=== PATIENT | female | born 1990 | race American Indian/Alaskan Native ===

== ENCOUNTER 2016-10-05 13:45 | Emergency (ER) | payer SELFPAY ==
[2016-10-05 19:38] VITALS: BP 156/98
--- NOTE | 2016-10-06 07:24 | ED Elopement Review ---
ED Pt Elopement review - Results review Lab results: Laboratory Tests 10/05/16 14:53 Urine HCG, Qual Negative - Call Back decision Pt Call Back Decision: No action required
== END 2016-10-05 20:30 | disposition left against medical advice (07) ==
LOC: ED 13:45
DX: M79.605 Pain in left leg (principal); Z53.21 Procedure and treatment not carried out due to patient leaving prior to being seen by health care provider
CPT/HCPCS: 81025

== ENCOUNTER 2016-10-06 11:10 | Emergency (ER) | payer SELFPAY ==
[2016-10-06 12:36] VITALS: BP 136/78
[2016-10-06] MEDS ORDERED: TORADOL IM ONE (13:32)
--- NOTE | 2016-10-06 14:16 | Emergency Department Report ---
ED Extremity Problem HPI - General Chief complaint: Extremity Injury, Lower Stated complaint: PAIN IN KNEE/SWELLING Time Seen by Provider: 10/06/16 13:22 Source: patient, RN notes reviewed, old records reviewed Mode of arrival: Ambulatory Limitations: No Limitations - History of Present Illness Initial comments: PT c/o L knee pain that radiates down her leg x a couple of weeks. PT states she came to the ED yesterday and had an ultra sound but then she left. PT states she has not recently injured her leg/ knee but she has a hx of "sprained leg" PT states she injured her leg at the end of last year. PT states she walks frequently. No relief of pain with Goody's powder or Tylenol. PT states her leg was swollen yesterday but the swelling decreased after she elevated her leg yesterday MD Complaint: extremity pain, joint paint Onset/Timin -: Gradual, week(s) Location: left, lower extremity, knee History of Same: Yes Severity scale (0 -10): 10 Quality: aching, sharp, constant Consistency: constant Improves with: elevation, rest Worsens with: weight bearing, walking, palpation Associated Symptoms: denies other symptoms. denies: fever, rash - Related Data Previous Rx's Medication Instructions Recorded Last Taken Type Ibuprofen [Motrin] 600 mg PO Q8H PRN #15 tablet 10/06/16 Unknown Rx traMADol [Ultram] 50 mg PO Q6HR PRN #12 tablet 10/06/16 Unknown Rx Allergies Allergy/AdvReac Type Severity Reaction Status Date / Time acetaminophen [From Percocet] Allergy Itching Verified 10/06/16 12:36 oxycodone HCl [From Percocet] Allergy Itching Verified 10/06/16 12:36 ED Review of Systems ROS: Stated complaint: PAIN IN KNEE/SWELLING Other details as noted in HPI Comment: All other systems reviewed and negative Constitutional: denies: fever Cardiovascular: denies: chest pain Gastrointestinal: denies: nausea, vomiting Musculoskeletal: as per HPI, joint swelling. denies: back pain Skin: denies: rash Neurological: denies: headache ED Past Medical Hx - Past Medical History Additional medical history: Left leg pain, Hx. of left index finger injury - Surgical History Past Surgical History?: No - Social History Smoking Status: Current Every Day Smoker Substance Use Type: Alcohol - Medications Home Medications: Home Medications Medication Instructions Recorded Confirmed Last Taken Type Ibuprofen [Motrin] 600 mg PO Q8H PRN #15 tablet 10/06/16 Unknown Rx traMADol [Ultram] 50 mg PO Q6HR PRN #12 tablet 10/06/16 Unknown Rx ED Physical Exam - General Limitations: No Limitations General appearance: alert, in no apparent distress - Head Head exam: Present: atraumatic, normocephalic, normal inspection - Eye Eye exam: Present: normal appearance, EOMI. Absent: conjunctival injection - ENT ENT exam: Present: normal exam, normal external ear exam - Neck Neck exam: Present: normal inspection, full ROM - Respiratory Respiratory exam: Present: normal lung sounds bilaterally. Absent: respiratory distress - Cardiovascular Cardiovascular Exam: Present: regular rate, normal rhythm - GI/Abdominal GI/Abdominal exam: Present: soft. Absent: tenderness - Extremities Exam Extremities exam: Present: normal inspection, full ROM, tenderness, calf tenderness. Absent: pedal edema, joint swelling - Expanded Lower Extremity Exam Left Hip exam: Present: full ROM. Absent: tenderness Upper Leg exam: Present: normal inspection. Absent: tenderness, swelling Knee exam: Present: normal inspection, full ROM, tenderness (to medial knee ). Absent: swelling, ecchymosis, deformity, crepidus Lower Leg exam: Present: tenderness, Isiah's sign. Absent: swelling Ankle exam: Present: normal inspection, tenderness. Absent: swelling, ecchymosis, deformity, dislocation Foot/Toe exam: Present: normal inspection, full ROM. Absent: tenderness Neuro vascular tendon exam: Absent: pulse deficit - Back Exam Back exam: Present: normal inspection, full ROM. Absent: tenderness, CVA tenderness (R), CVA tenderness (L) - Neurological Exam Neurological exam: Present: alert, oriented X3 - Psychiatric Psychiatric exam: Present: normal affect, normal mood - Skin Skin exam: Present: warm, dry, intact ED Course Vital Signs 10/06/16 12:31 Temperature 98.0 F Pulse Rate 70 Respiratory 18 Rate Blood Pressure 136/78 O2 Sat by Pulse 100 Oximetry - Reevaluation(s) Reevaluation #1: 10/06/16 14:19 PT aware no DVT seen on US yesterday. Reevaluation #2: 10/06/16 14:35 PT states pain improved sp Toradol. PT aware of my interpretation of the XR Reevaluation #3: 10/06/16 PT placed in knee immobilizer by RN, pt NVI - Pulse Oximetry Interpretation Digit-Finger Initial Pulse Oximetry Readin Actions Taken: none ED Medical Decision Making - Radiology Data Radiology results: image reviewed interpreted by me: Dariel knee- NAP - Differential Diagnosis dvt, strain, oa, effusion Critical Care Time: No Critical care attestation.: If time is entered above; I have spent that time in minutes in the direct care of this critically ill patient, excluding procedure time. ED Disposition Clinical Impression: Acute pain of left knee Disposition: DISCHARGED TO HOME OR SELFCARE Is pt being admited?: No Does the pt Need Aspirin: No Condition: Stable Instructions: Knee Pain (ED), Knee Immobilizer (ED) Additional Instructions: No driving or ETOH after Ultram No Goody's powder with Motrin Prescriptions: Ibuprofen [Motrin] 600 mg PO Q8H PRN #15 tablet PRN Reason: Pain traMADol [Ultram] 50 mg PO Q6HR PRN #12 tablet PRN Reason: Pain Referrals: PRIMARY CARE, [Primary Care Provider] - 3-5 Days WILLEM LIMA MD [Staff Physician] - 3-5 Days TIERA RODRÍGUEZ MD [Staff Physician] - 3-5 Days Time of Disposition: 14:38
--- NOTE | 2016-10-07 10:16 | XRay Report ---
LEFT KNEE, 2 views: History: Left knee pain. The bony architecture is intact without evidence of fracture or dislocation. No significant soft tissue abnormality is seen. IMPRESSION: Normal left knee. No significant change since 09/01/14.
== END 2016-10-06 14:55 | disposition home or self-care (01) ==
LOC: ED 11:10
DX: M25.562 Pain in left knee (principal); F17.200 Nicotine dependence, unspecified, uncomplicated
CPT/HCPCS: 29505; 73560; 96372; 99283; J1885

== ENCOUNTER 2017-05-10 17:09 | Emergency (ER) | payer SELFPAY ==
--- NOTE | 2017-05-10 21:32 | Emergency Department Report ---
HPI - General Chief Complaint: Sore Throat Time Seen by Provider: 05/10/17 19:43 - HPI HPI: Patient here reports that she has had sore throat 1 week, painful to swallow. She says she had fever and chills. Denies any nausea or vomiting. She said it is painful to talk. Pain is worse with swallowing better when she is not talking or eating. She said she has no cough in, nasal congestion or runny nose. Denies any shortness of breath or chest pain. Denies any swelling of tongue or drooling. Pain is 10 out of 10 and feels sore. Denies any nausea or vomiting. Denies any abdominal pain. ED Past Medical Hx - Past Medical History Previous Medical History?: Yes Additional medical history: Left leg pain, Hx. of left index finger injury - Surgical History Past Surgical History?: No - Family History Family history: hypertension - Social History Smoking Status: Current Every Day Smoker Substance Use Type: Alcohol - Medications Home Medications: Home Medications Medication Instructions Recorded Confirmed Last Taken Type Ibuprofen [Motrin] 600 mg PO Q8H PRN #15 tablet 10/06/16 Unknown Rx traMADol [Ultram] 50 mg PO Q6HR PRN #12 tablet 10/06/16 Unknown Rx Ibuprofen [Motrin] 600 mg PO Q8H PRN 5 Days #15 tablet 05/10/17 Unknown Rx Penicillin V Potassium 500 mg PO Q8H 10 Days #30 tablet 05/10/17 Unknown Rx ED Review of Systems ROS: Stated complaint: MOUTH PAIN Other details as noted in HPI Comment: All other systems reviewed and negative Constitutional: chills, fever ENT: throat pain. denies: ear pain, dental pain, hearing loss, epistaxis, congestion Respiratory: no symptoms reported Cardiovascular: denies: chest pain, palpitations, dyspnea on exertion, edema, syncope Gastrointestinal: denies: abdominal pain, nausea, vomiting, diarrhea Musculoskeletal: denies: back pain, arthralgia, myalgia Skin: denies: rash Neurological: denies: headache Physical Exam - Physical Exam Vital Signs: Vital Signs 05/10/17 05/10/17 17:11 19:48 Temperature 99.3 F 98.3 F Pulse Rate 90 91 H Respiratory 20 18 Rate Blood Pressure 188/96 Blood Pressure 153/94 [Left] O2 Sat by Pulse 98 99 Oximetry General: This is 27-year-old female well-nourished well-developed in no acute distress. Physical Exam: Head: Normocephalic atraumatic Ears:BIateral TM normal and pearly olea .Gopi EAC with normal exam. No mastoid bone tenderness. Mouth: Moist, positive pharyngeal erythema or exudate . No tonsillar erythema or exudate. UVULA midline and oral airways patent. No peritonsillar abscess Neck: Nontender to palpate, supple, normal range of motion. positive anterior adenopathy. No c-spine tenderness. Nose: Bilateral nasal normal without any drainage. Maxillary and frontal sinuses non-tender to palpate. Eyes: Sclerae and conjunctiva without injection. Bilateral pupils equal and reactive to light. Bilateral lids are normal. Normal accommodation.BEOMI Lungs: Clear to auscultate bilaterally, no rhonchi wheezes or rales. Normal work of breathing and no chest wall tenderness CV: S1, S2. Regular rate and rhythm negative murmur. Capillary refill is less than 3 seconds Skin: Clean dry and intact, no rashes or lesions Psych: Normal mood and behavior ED Course Vital Signs 05/10/17 05/10/17 17:11 19:48 Temperature 99.3 F 98.3 F Pulse Rate 90 91 H Respiratory 20 18 Rate Blood Pressure 188/96 Blood Pressure 153/94 [Left] O2 Sat by Pulse 98 99 Oximetry - Reevaluation(s) Reevaluation #1: 05/10/17 22:34 Patient given Toradol 60 mg IM and Decadron 10 mg IM. She voiced relief of pain. ED Medical Decision Making - Medical Decision Making ED course: Patient presented to emergency room complaining of sore throat and painful to swallow with fever and chills over a week. She denies any exposure to strep. Patient was not having any respiratory symptoms. Physical findings for erythema, exudative pharynx. Patient also had fever and chills and some Cervical adenopathy. Based on [facility] criteria patient will be treated for strep throat. No need for strep tests. I discussed patient diagnosis and treatment plan and she voiced understanding. Patient given Decadron 10 mg IV for swelling to throat, Toradol 60 mg IM for inflammation and pain. Patient voiced that her pain is better. Patient discharged home with prescription for penicillin VK and Motrin and to follow-up with her primary care physician in 3 days. Discussed with her she does not have a primary care physician she will need to follow[facility] at the [facility]. Critical care attestation.: If time is entered above; I have spent that time in minutes in the direct care of this critically ill patient, excluding procedure time. ED Disposition Clinical Impression: Exudative pharyngitis, Fever and chills, Anterior cervical adenopathy Disposition: - TO HOME OR SELFCARE Is pt being admited?: No Does the pt Need Aspirin: No Condition: Stable Instructions: Strep Throat (ED), Fever in Adults (ED) Additional Instructions: Please increase her fluid intake Gargle with warm salt water 3-4 times a day to help sore throat can take Motrin as scheduled for sore throat and inflammation. take antibiotic as prescribed F/U with primary care physician as instructed and if you do not have a primary care physician he can follow up at [facility]. Prescriptions: Ibuprofen [Motrin] 600 mg PO Q8H PRN 5 Days #15 tablet PRN Reason: Pain Penicillin V Potassium 500 mg PO Q8H 10 Days #30 tablet Referrals: PRIMARY CAREMD [Primary Care Provider] - 05/13/17 [facility] [Outside] - 05/13/17 Forms: Accompanied Note, Work/School Release Form(ED)
[2017-05-10] MEDS ORDERED: DECADRON INTRAOCULA ONE (21:33)
[2017-05-10] MEDS ORDERED: TORADOL IM ONE (21:33)
[2017-05-10 22:52] VITALS: BP 151/82
== END 2017-05-10 22:51 | disposition home or self-care (01) ==
LOC: ED 17:09
DX: J02.9 Acute pharyngitis, unspecified (principal); R59.0 Localized enlarged lymph nodes; F17.200 Nicotine dependence, unspecified, uncomplicated
CPT/HCPCS: 96372; 99282; J1100; J1885

== ENCOUNTER 2018-12-26 14:24 | Emergency (ER) | payer SELFPAY ==
--- NOTE | 2018-12-26 14:53 | Event Note ---
ED Screening Note ED Screening Note: pt presents with vaginal discharge +dysuria denies any hx of STDs in the past This initial assessment/diagnostic orders/clinical plan/treatment(s) is/are subject to change based on patients health status, clinical progression and re- assessment by fellow clinical providers in the ED. Further treatment and workup at subsequent clinical providers discretion. Patient/guardian urged not to elope from the ED as their condition may be serious if not clinically assessed and managed. Initial orders include: UA, urine preg
--- NOTE | 2018-12-26 21:23 | Emergency Department Report ---
ED Female HPI - General Chief complaint: Urogenital-Female Stated complaint: STD CHECK Time Seen by Provider: 12/26/18 14:51 Source: patient Mode of arrival: Ambulatory Limitations: No Limitations - History of Present Illness Initial comments: Pt presents with vaginal discharge +dysuria , concern for STD Exposure as reported by partner, denies any hx of STDs in the past , vaginal discharge is brown and malodorous. MD Complaint: vaginal discharge, dysuria Onset/Timin -: Gradual, days(s) Severity scale (0 -10): 4 Quality: cramping Consistency: constant Improves with: none Worsens with: urination Are you Now?: No Last Menstrual Period: 11/15/18 EDC: 08/22/19 Associated Symptoms: vaginal discharge, dysuria - Related Data Sexually active: Yes Previous Rx's Medication Instructions Recorded Last Taken Type Ibuprofen [Motrin] 600 mg PO Q8H PRN #15 tablet 10/06/16 Unknown Rx traMADol [Ultram] 50 mg PO Q6HR PRN #12 tablet 10/06/16 Unknown Rx Ibuprofen [Motrin] 600 mg PO Q8H PRN 5 Days #15 tablet 05/10/17 Unknown Rx Penicillin V Potassium 500 mg PO Q8H 10 Days #30 tablet 05/10/17 Unknown Rx metroNIDAZOLE [Flagyl] 500 mg PO BID 10 Days #20 tab 12/26/18 Unknown Rx Allergies Allergy/AdvReac Type Severity Reaction Status Date / Time acetaminophen [From Percocet] Allergy Itching Verified 12/26/18 14:25 oxycodone HCl [From Percocet] Allergy Itching Verified 12/26/18 14:25 ED Review of Systems ROS: Stated complaint: STD CHECK Other details as noted in HPI Constitutional: denies: chills, fever Eyes: denies: eye pain, eye discharge, vision change ENT: denies: ear pain, throat pain Respiratory: denies: cough, shortness of breath, wheezing Cardiovascular: denies: chest pain, palpitations Endocrine: no symptoms reported Gastrointestinal: denies: abdominal pain, nausea, diarrhea Genitourinary: urgency, dysuria, frequency, discharge. denies: hematuria Musculoskeletal: denies: back pain, joint swelling, arthralgia Skin: denies: rash, lesions Neurological: denies: headache, weakness, paresthesias Psychiatric: denies: anxiety, depression Hematological/Lymphatic: denies: easy bleeding, easy bruising ED Past Medical Hx - Past Medical History Previous Medical History?: No Additional medical history: Left leg pain, Hx. of left index finger injury - Social History Smoking Status: Current Every Day Smoker Substance Use Type: Alcohol - Medications Home Medications: Home Medications Medication Instructions Recorded Confirmed Last Taken Type Ibuprofen [Motrin] 600 mg PO Q8H PRN #15 tablet 10/06/16 Unknown Rx traMADol [Ultram] 50 mg PO Q6HR PRN #12 tablet 10/06/16 Unknown Rx Ibuprofen [Motrin] 600 mg PO Q8H PRN 5 Days #15 tablet 05/10/17 Unknown Rx Penicillin V Potassium 500 mg PO Q8H 10 Days #30 tablet 05/10/17 Unknown Rx metroNIDAZOLE [Flagyl] 500 mg PO BID 10 Days #20 tab 12/26/18 Unknown Rx ED Physical Exam - General Limitations: No Limitations General appearance: alert, in no apparent distress - Head Head exam: Present: atraumatic, normocephalic - Eye Eye exam: Present: normal appearance, PERRL, EOMI - ENT ENT exam: Present: normal exam, mucous membranes moist - Neck Neck exam: Present: normal inspection, full ROM - Respiratory Respiratory exam: Present: normal lung sounds bilaterally. Absent: respiratory distress, wheezes, stridor, chest wall tenderness - Cardiovascular Cardiovascular Exam: Present: regular rate, normal rhythm, normal heart sounds. Absent: systolic murmur, diastolic murmur, rubs, gallop - GI/Abdominal GI/Abdominal exam: Present: soft, normal bowel sounds. Absent: distended, tenderness, guarding, rebound, rigid, bruit, hernia - Rectal Rectal exam: Present: deferred - External exam: Present: normal external exam Speculum exam: Present: erythema, vaginal discharge (brownish brink malodorous moderate erythema no cmt ). Absent: cervical discharge, vaginal bleeding, foreign body, laceration - Extremities Exam Extremities exam: Present: normal inspection - Back Exam Back exam: Present: normal inspection, full ROM. Absent: tenderness, CVA tenderness (R), CVA tenderness (L), muscle spasm, paraspinal tenderness, rash noted - Neurological Exam Neurological exam: Present: alert, oriented X3, CN II-XII intact, normal gait, reflexes normal. Absent: motor sensory deficit - Psychiatric Psychiatric exam: Present: normal affect, normal mood - Skin Skin exam: Present: warm, dry, intact, normal color. Absent: rash ED Course Vital Signs 12/26/18 14:52 Temperature 98.0 F Pulse Rate 99 H Respiratory 16 Rate Blood Pressure 143/78 O2 Sat by Pulse 99 Oximetry ED Medical Decision Making - Medical Decision Making pt request std exposure tx , vaganal exam completed cultures pending will call pt if abnormal findings , pt tx'd phrophylactically as requested for std exposure. pt dc't to home in stable condition at this time. Critical care attestation.: If time is entered above; I have spent that time in minutes in the direct care of this critically ill patient, excluding procedure time. ED Disposition Clinical Impression: Exposure to STD, Bacterial vaginosis Disposition: DC-01 TO HOME OR SELFCARE Is pt being admited?: No Does the pt Need Aspirin: No Condition: Stable Instructions: Bacterial Vaginosis (ED) Additional Instructions: follow up with health department for HIV and HSV Screening Prescriptions: metroNIDAZOLE [Flagyl] 500 mg PO BID 10 Days #20 tab Referrals: TEN CONTE MD [Primary Care Provider] - 3-5 Days Forms: STI Treatment and Prevention Time of Disposition: 22:20
[2018-12-26] MEDS ORDERED: ZITHROMAX PO ONE (22:01)
[2018-12-26] MEDS ORDERED: ROCEPHIN IM ONE (22:01)
[2018-12-26] MEDS ORDERED: XYLOCAINE 1% MPF 5 mL INFILTRATI ONE (22:01)
[2018-12-26 22:56] VITALS: BP 168/100
== END 2018-12-26 22:27 | disposition home or self-care (01) ==
LOC: ED 14:24
DX: Z20.2 Contact with and (suspected) exposure to infections with a predominantly sexual mode of transmission (principal); N76.0 Acute vaginitis; B96.89 Other specified bacterial agents as the cause of diseases classified elsewhere; F17.200 Nicotine dependence, unspecified, uncomplicated; Z88.5 Allergy status to narcotic agent; Z79.1 Long term (current) use of non-steroidal anti-inflammatories (NSAID); Z79.899 Other long term (current) drug therapy
CPT/HCPCS: 87210; 96372; 99283; J0696

== ENCOUNTER 2019-03-13 09:06 | Emergency (ER) | payer BC ==
[2019-03-13 09:28] VITALS: BP 138/48
[2019-03-13 11:21] LABS: Bilirubin,Urine NEG (Negative); Blood,Urine SM (Negative); Color,Urine Amber (Yellow); Mucus,Urine 3+ /HPF; Urobilinogen,Urine < 2.0 mg/dL (<2.0)
[2019-03-13] MEDS ORDERED: LIDOCAINE-MPF (1%) 10 MG/1 ML VIAL 5 ML INFILTRATI ONE (12:09)
[2019-03-13] MEDS ORDERED: AZITHROMYCIN 250 MG TAB PO ONE (12:10)
--- NOTE | 2019-03-13 12:14 | Emergency Department Report ---
ED Female HPI - General Chief complaint: Urogenital-Female Stated complaint: MESSINA WHEN URINATION/PAIN Time Seen by Provider: 03/13/19 10:13 Source: patient Mode of arrival: Ambulatory Limitations: No Limitations - History of Present Illness Initial comments: Pt. c/o vaginal irritation and dysuria. No fever or flank pain. symptoms are consistant with prior trich infxn. Complaint: vaginal discharge Onset/Timin -: Gradual, days(s) Location: suprapubic Radiation: non-radiating Severity scale (0 -10): 5 Quality: cramping Consistency: intermittent Improves with: none Worsens with: intercourse Are you Now?: No - Related Data Previous Rx's Medication Instructions Recorded Last Taken Type Ibuprofen [Motrin] 600 mg PO Q8H PRN #15 tablet 10/06/16 Unknown Rx traMADol [Ultram] 50 mg PO Q6HR PRN #12 tablet 10/06/16 Unknown Rx Ibuprofen [Motrin] 600 mg PO Q8H PRN 5 Days #15 tablet 05/10/17 Unknown Rx Penicillin V Potassium 500 mg PO Q8H 10 Days #30 tablet 05/10/17 Unknown Rx Fluconazole [Diflucan TAB] 150 mg PO ONCE #1 tablet 03/13/19 Unknown Rx metroNIDAZOLE [Flagyl TAB] 4 tab PO ONCE 1 Days #4 tab 03/13/19 Unknown Rx Allergies Allergy/AdvReac Type Severity Reaction Status Date / Time acetaminophen [From Percocet] Allergy Itching Verified 12/26/18 14:25 oxycodone HCl [From Percocet] Allergy Itching Verified 12/26/18 14:25 ED Review of Systems ROS: Stated complaint: MESSINA WHEN URINATION/PAIN Other details as noted in HPI Comment: All other systems reviewed and negative Respiratory: denies: cough, orthopnea Cardiovascular: denies: chest pain, dyspnea on exertion Gastrointestinal: denies: nausea Genitourinary: urgency, dysuria ED Past Medical Hx - Past Medical History Previous Medical History?: No Additional medical history: Left leg pain, Hx. of left index finger injury - Surgical History Past Surgical History?: No - Social History Smoking Status: Current Every Day Smoker Substance Use Type: Alcohol - Medications Home Medications: Home Medications Medication Instructions Recorded Confirmed Last Taken Type Ibuprofen [Motrin] 600 mg PO Q8H PRN #15 tablet 10/06/16 Unknown Rx traMADol [Ultram] 50 mg PO Q6HR PRN #12 tablet 10/06/16 Unknown Rx Ibuprofen [Motrin] 600 mg PO Q8H PRN 5 Days #15 tablet 05/10/17 Unknown Rx Penicillin V Potassium 500 mg PO Q8H 10 Days #30 tablet 05/10/17 Unknown Rx Fluconazole [Diflucan TAB] 150 mg PO ONCE #1 tablet 03/13/19 Unknown Rx metroNIDAZOLE [Flagyl TAB] 4 tab PO ONCE 1 Days #4 tab 03/13/19 Unknown Rx ED Physical Exam - General Limitations: No Limitations General appearance: alert, in no apparent distress - Head Head exam: Present: atraumatic, normocephalic - Eye Eye exam: Present: normal appearance, PERRL, EOMI Pupils: Present: normal accommodation - ENT ENT exam: Present: normal exam, normal orophraynx - Neck Neck exam: Present: normal inspection - Respiratory Respiratory exam: Present: normal lung sounds bilaterally - Cardiovascular Cardiovascular Exam: Present: regular rate, normal rhythm - GI/Abdominal GI/Abdominal exam: Present: soft - External exam: Present: normal external exam Speculum exam: Present: cervical discharge Bi-manual exam: Present: cervical motion tendernes - Extremities Exam Extremities exam: Present: normal inspection - Back Exam Back exam: Present: normal inspection ED Course Vital Signs 03/13/19 09:26 Temperature 98 F Pulse Rate 88 Respiratory 16 Rate Blood Pressure 138/48 [Left] O2 Sat by Pulse 95 Oximetry Critical care attestation.: If time is entered above; I have spent that time in minutes in the direct care of this critically ill patient, excluding procedure time. ED Disposition Clinical Impression: Trichomonal cervicitis Disposition: DC-01 TO HOME OR SELFCARE Is pt being admited?: No Does the pt Need Aspirin: No Condition: Stable Prescriptions: Fluconazole [Diflucan TAB] 150 mg PO ONCE #1 tablet metroNIDAZOLE [Flagyl TAB] 4 tab PO ONCE 1 Days #4 tab Referrals: PRIMARY CARE,MD [Primary Care Provider] - 3-5 Days Forms: STI Treatment and Prevention, Work/School Release Form(ED)
== END 2019-03-13 12:32 | disposition home or self-care (01) ==
LOC: ED 09:06
DX: A59.09 Other urogenital trichomoniasis (principal); F17.200 Nicotine dependence, unspecified, uncomplicated; Z88.5 Allergy status to narcotic agent; Z79.1 Long term (current) use of non-steroidal anti-inflammatories (NSAID); Z79.899 Other long term (current) drug therapy
CPT/HCPCS: 81001; 87086; 87210; 87591; 96372; 99284; J0696

== ENCOUNTER 2020-06-02 08:32 | Emergency (ER) | payer SELFPAY ==
[2020-06-02 08:40] VITALS: BP 137/90
[2020-06-02] MEDS ORDERED: AMOXICILLIN 500 MG CAP PO ONE (10:01)
[2020-06-02] MEDS ORDERED: IBUPROFEN 800 MG TAB PO ONE (10:01)
--- NOTE | 2020-06-02 10:04 | Emergency Department Report ---
Minor Respiratory - HPI Chief Complaint: Sore Throat Stated Complaint: SORE THROAT/CHILLS Time Seen by Provider: 06/02/20 09:50 Duration: 3 Days Pain Location: Throat Severity: moderate Minor Respiratory: Yes Sore Throat, Yes Able to Tolerate Fluids, No Rhinorrhea, No Ear Pain, No Cough, No Sick Contacts, No Hemoptysis, No Chest Pain, No Shortness of Breath, No Fever Other History: Patient is a 30-year-old -[place] female that comes to the ER with a sore throat for several days. ABCs are intact. She is controlling secretions. She denies fever or chills. Denies cough. Denies nausea vomiting or abdominal pain. She has not seen a primary care doctor for this complaint. She is ambulatory and nontoxic to [facility] ED Review of Systems ROS: Stated complaint: SORE THROAT/CHILLS Other details as noted in HPI Comment: All other systems reviewed and negative ED Past Medical Hx - Past Medical History Hx Hypertension: Yes Additional medical history: Left leg pain, Hx. of left index finger injury - Surgical History Past Surgical History?: No - Family History Family history: no significant - Social History Smoking Status: Current Every Day Smoker Substance Use Type: Alcohol, Marijuana - Medications Home Medications: Home Medications Medication Instructions Recorded Confirmed Last Taken Type Amoxicillin [Trimox CAP] 500 mg PO BID #20 capsule 06/02/20 Unknown Rx Minor Respiratory Exam - Exam General: Vital signs noted. No distress. Alert and acting appropriately. HEENT: Yes Pharyngeal Erythema, Yes Pharyngeal Exudates, Yes Moist Mucous Membranes, No Rhinorrhea, No Conjuctival Injection, No Frontal Tenderness, No Maxillary Tenderness Ear: Neither TM Bulge, Neither TM Erythema, Neither EAC Pain, Neither EAC Discharge Neck: Yes Supple, No Adenopathy Lungs: Yes Good Air Exchange, No Wheezes, No Ronchi, No Stridor, No Cough, No Labored Respirations, No Retractions, No Use of Accessory Muscles, No Other Abnormal Lung Sounds Heart: Yes Regular, No Murmur Abdomen: Yes Normal Bowel Sounds, No Tenderness, No Peritoneal Signs Skin: No Rash, No Edema Neurologic: Alert and oriented, no deficits. Musculoskeletal: Unremarkable. ED Course Vital Signs 06/02/20 08:37 Temperature 99.3 F Pulse Rate 108 H Respiratory 18 Rate Blood Pressure 137/90 O2 Sat by Pulse 98 Oximetry ED Medical Decision Making - Medical Decision Making Patient has bilateral exudative pharyngitis. Controlling secretions. Taking p.o. Patient nonfebrile. No hypotension or tachycardia. Heart rate on provider exam is 100. Note patient has low-grade fever 99.3 on admission for which she is been given Tylenol. She is also morbidly obese Patient given p.o. challenge and has kept fluids down. She has been given amoxicillin and Motrin in the ER. Patient being discharged home with detailed discharge instructions including medications, hydration, diet and follow-up. She verbalizes understanding of discharge plan of care. Vital Signs 06/02/20 08:37 Temperature 99.3 F Pulse Rate 108 H Respiratory 18 Rate Blood Pressure 137/90 O2 Sat by Pulse 98 Oximetry - Differential Diagnosis uri Critical care attestation.: If time is entered above; I have spent that time in minutes in the direct care of this critically ill patient, excluding procedure time. ED Disposition Clinical Impression: Exudative pharyngitis Disposition: DC-01 TO HOME OR SELFCARE Is pt being admited?: No Does the pt Need Aspirin: No Condition: Stable Instructions: Upper Respiratory Infection, Adult, Strep Throat, Adult, [id number] Additional Instructions: Medications as ordered today Stay well-hydrated Medication as ordered today Motrin or Tylenol for pain or discomfort Follow-up with PCP in 48 hours to make sure you are getting better. Referral below Prescriptions: Amoxicillin [Trimox CAP] 500 mg PO BID #20 capsule Referrals: PRIMARY MD BROOKS [Primary Care Provider] - 3-5 Days JESSIE ARCOS MD [Staff Physician] - 3-5 Days Time of Disposition: 10:02
== END 2020-06-02 11:04 | disposition home or self-care (01) ==
LOC: ED 08:32
DX: R42 Dizziness and giddiness (principal); I10 Essential (primary) hypertension; F17.200 Nicotine dependence, unspecified, uncomplicated; Z79.899 Other long term (current) drug therapy
CPT/HCPCS: 99282

== ENCOUNTER 2020-06-15 09:35 | Emergency (ER) | payer SELFPAY ==
[2020-06-15 10:49] VITALS: BP 136/70
--- NOTE | 2020-06-15 14:39 | Emergency Department Report ---
Chief Complaint: Urogenital-Female Stated Complaint: VAGINAL ITCHING AND BURNING Time Seen by Provider: 06/15/20 14:35 - HPI History of Present Illness: Patient is a 30-year-old female who presents emergency room with complaints of vaginal itching that began a few days ago. She states that she completed a course of amoxicillin for strep throat and then began to have the itching shortly after. She states that she has a thick white cottage cheeselike discharge. She states that there is some burning around the areas that she has been scratching. She denies any dysuria, fever, abdominal pain, pelvic pain. No past medical history. Allergies to oxycodone. Last menstrual cycle 05/30/2020. She has not used anything for her symptoms. Vitals are stable On exam: Non toxic appearing, no acute distress atraumatic, normocephalic normal appearance of the eyes, EOMI, no periorbital edema or ecchymosis moist mucus membranes No respiratory distress, no accessory muscle use A&O x4, no focal neuro deficit Patient is presenting with what appears most consistent with vaginal candidiasis Likely secondary to amoxicillin use advised pt Please use Monistat 7-day [id number]. Please eat yogurt and take probiotics. Follow-up with a primary care doctor if symptoms or not improving. Return to emergency room for any new or worsening symptoms. Discussed in detail with patient strict return precautions Medical screening examination performed and there is no threat to life or limb at this time - Exam Vital Signs: Vital Signs 06/15/20 10:48 Temperature 98.1 F Pulse Rate 71 Respiratory 18 Rate Blood Pressure 136/70 [Right] O2 Sat by Pulse 100 Oximetry MSE screening note: Focused history and physical exam performed. Due to findings the following was ordered: ED Disposition for MSE Clinical Impression: Vaginal itching Disposition: Z-07 MED SCREENING EXAM-LEFT Is pt being admited?: No Does the pt Need Aspirin: No Condition: Stable Instructions: Vaginal Yeast Infection, Adult Additional Instructions: Please use Monistat 7-day [id number]. Please eat yogurt and take probiotics. Follow-up with a primary care doctor if symptoms or not improving. Return to emergency room for any new or worsening symptoms. Referrals: PRIMARY MD BROOKS [Primary Care Provider] - 2-3 Days JESSIE ARCOS MD [Staff Physician] - 2-3 Days [facility] [Provider Group] - 2-3 Days [facility] [Outside] - 2-3 Days Time of Disposition: 14:38 Print Language: ANGOLAN
== END 2020-06-15 14:43 | disposition left against medical advice (07) ==
LOC: ED 09:35
DX: N89.8 Other specified noninflammatory disorders of vagina (principal); Z53.21 Procedure and treatment not carried out due to patient leaving prior to being seen by health care provider

== ENCOUNTER 2021-10-05 10:11 | Emergency (ER) | payer SELFPAY ==
[2021-10-05] MEDS ORDERED: predniSONE 20 MG TAB PO ONE (13:11)
[2021-10-05] MEDS ORDERED: IBUPROFEN 600 MG TAB PO ONE (13:11)
--- NOTE | 2021-10-05 14:02 | XRay Report ---
RIGHT KNEE 3 VIEWS INDICATION / CLINICAL INFORMATION: Intermittent knee pain after twisting injury several months ago. COMPARISON: None available. FINDINGS: BONES / JOINT(S): No acute fracture or subluxation. No significant arthritis. SOFT TISSUES: Joint effusion. No significant soft tissue swelling. ADDITIONAL FINDINGS: None. IMPRESSION: Small joint effusion otherwise no significant abnormality. Signer Name: Kamaljit Montilla MD Signed: 10/05/2021 1:57 PM Workstation Name: [id number]
--- NOTE | 2021-10-05 14:19 | Emergency Department Report ---
ED Extremity Problem HPI - General Chief complaint: Extremity Injury, Lower Stated complaint: RT LEG FLUID/PAIN Source: patient Mode of arrival: Ambulatory Limitations: No Limitations - History of Present Illness Initial comments: Patient is a 31-year-old -[place] female with a history of chronic right knee pain from an old injury presents to the ED with complaint of acute onset persistent painful swollen right knee after she bumped it against a metallic furniture about 4 days ago. Patient states that the pain is constant and persistent and that she is unable to bear weight on the right knee due to pain and swelling. Patient denies fall, nausea, vomiting, chest pain, shortness of breath, hip pain, back pain, numbness and tingling or weakness of lower extremities bilaterally. MD Complaint: extremity pain (Chronic right knee pain), extremity swelling (Right knee joint effusion and swelling), joint swelling (Right knee swelling), joint paint (Right knee joint pain) -: Gradual, year(s) (1) Location: right, knee (Right knee pain) History of Same: Yes (Chronic) -: Yes arthralgia (Right knee pain), No fever, No associated dyspnea, No associated chest pain Radiation: none Severity scale (0 -10): 8 Quality: aching, sharp Consistency: constant Improves with: nothing Worsens with: weight bearing, walking, exertion, palpation Associated Symptoms: denies other symptoms, arthralgias (Painful right knee joint). denies: chest pain, shortness of breath, fever, myalgias, rash - Related Data Previous Rx's Medication Instructions Recorded Last Taken Type Amoxicillin [Trimox CAP] 500 mg PO BID #20 capsule 06/02/20 Unknown Rx Naproxen 500 mg PO Q12H PRN #30 tab 10/05/21 Unknown Rx predniSONE [Deltasone] 60 mg PO QDAY #15 tab 10/05/21 Unknown Rx traMADoL [Ultram] 50 mg PO Q6HR PRN #12 tablet 10/05/21 Unknown Rx Allergies Allergy/AdvReac Type Severity Reaction Status Date / Time oxycodone HCl [From Percocet] Allergy Itching Verified 06/15/20 10:44 ED Review of Systems ROS: Stated complaint: RT LEG FLUID/PAIN Other details as noted in HPI Constitutional: denies: chills, fever Eyes: denies: eye pain, eye discharge, vision change ENT: denies: ear pain, throat pain Respiratory: denies: cough, shortness of breath, wheezing Cardiovascular: denies: chest pain, palpitations Endocrine: no symptoms reported Gastrointestinal: denies: abdominal pain, nausea, diarrhea Genitourinary: denies: urgency, dysuria, discharge Musculoskeletal: joint swelling (Mild right knee swelling and pain), arthralgia (Right knee pain) Skin: denies: rash, lesions Neurological: denies: headache, weakness, paresthesias Psychiatric: denies: anxiety, depression Hematological/Lymphatic: denies: easy bleeding, easy bruising ED Past Medical Hx - Past Medical History Previous Medical History?: Yes Hx Hypertension: Yes Hx Heart Attack/AMI: Yes Hx Arthritis: Yes (Chronic right knee pain) Additional medical history: Left leg pain, Hx. of left index finger injury - Surgical History Past Surgical History?: No - Social History Smoking Status: Never Smoker Substance Use Type: Marijuana - Medications Home Medications: Home Medications Medication Instructions Recorded Confirmed Last Taken Type Amoxicillin [Trimox CAP] 500 mg PO BID #20 capsule 06/02/20 Unknown Rx Naproxen 500 mg PO Q12H PRN #30 tab 10/05/21 Unknown Rx predniSONE [Deltasone] 60 mg PO QDAY #15 tab 10/05/21 Unknown Rx traMADoL [Ultram] 50 mg PO Q6HR PRN #12 tablet 10/05/21 Unknown Rx ED Physical Exam - General Limitations: No Limitations General appearance: alert, in no apparent distress - Head Head exam: Present: atraumatic, normocephalic, normal inspection - Eye Eye exam: Present: normal appearance, PERRL, EOMI Pupils: Present: normal accommodation - ENT ENT exam: Present: normal exam, normal orophraynx, mucous membranes moist, TM's normal bilaterally, normal external ear exam - Neck Neck exam: Present: normal inspection, full ROM. Absent: tenderness - Respiratory Respiratory exam: Present: normal lung sounds bilaterally. Absent: respiratory distress, wheezes, rales, rhonchi, chest wall tenderness, accessory muscle use, decreased breath sounds, prolonged expiratory - Cardiovascular Cardiovascular Exam: Present: regular rate, normal rhythm, normal heart sounds. Absent: systolic murmur, diastolic murmur, rubs, gallop - GI/Abdominal GI/Abdominal exam: Present: soft, normal bowel sounds. Absent: tenderness, guarding, hyperactive bowel sounds, hypoactive bowel sounds, mass, bruit - Extremities Exam Extremities exam: Present: normal inspection, full ROM, tenderness (Palpable right knee tenderness with mild swelling), normal capillary refill, joint swelling (Mild right knee joint swelling). Absent: pedal edema, calf tenderness - Back Exam Back exam: Present: normal inspection, full ROM. Absent: tenderness, CVA tenderness (R), CVA tenderness (L), muscle spasm, paraspinal tenderness, vertebral tenderness - Neurological Exam Neurological exam: Present: alert, oriented X3, CN II-XII intact, normal gait, reflexes normal - Psychiatric Psychiatric exam: Present: normal affect, normal mood - Skin Skin exam: Present: warm, dry, intact, normal color. Absent: rash ED Course Vital Signs 10/05/21 10/05/21 10:48 10:55 Temperature 98.3 F 98.3 F Pulse Rate 85 85 Respiratory 18 18 Rate Blood Pressure 149/87 Blood Pressure 149/87 [Left] O2 Sat by Pulse 98 98 Oximetry ED Medical Decision Making - Radiology Data Radiology results: report reviewed, image reviewed [facility] [address] [place] [address] XRay Report Signed Patient: KAREN ELLER MR# : [id number] : 1990 Acct:[id number] Age/Sex: 31 / F ADM Date: 10/05/21 Loc: ED Attending Dr: Ordering Physician: RAQUEL HENRY Date of Service: 10/05/21 Procedure(s): XR knee 3V RT Accession Number(s): [id number] cc: RAQUEL HENRY Fluoro Time In Minutes: RIGHT KNEE 3 VIEWS INDICATION / CLINICAL INFORMATION: Intermittent knee pain after twisting injury several months ago. COMPARISON: None available. FINDINGS: BONES / JOINT(S): No acute fracture or subluxation. No significant arthritis. SOFT TISSUES: Joint effusion. No significant soft tissue swelling. ADDITIONAL FINDINGS: None. IMPRESSION: Small joint effusion otherwise no significant abnormality. Signer Name: Kamaljit Montilla MD Signed: 10/05/2021 1:57 PM Workstation Name: [id number] Transcribed By: SW Dictated By: Kamaljit Montilla MD Electronically Authenticated By: Kamaljit Montilla MD Signed Date/Time: 10/05/211356 DD/ 56 TD/TT: - Medical Decision Making This is a 31-year-old -[place] female with a history of chronic right knee pain from an old injury presents to the ED with complaint of acute onset persistent painful swollen right knee after she bumped it against a metallic furniture about 4 days ago. Patient states that the pain is constant and persistent and that she is unable to bear weight on the right knee due to pain and swelling. In the ED, patient is alert and oriented x3 and is not in any distress. Patient was treated for pain in the ED. Right knee x-ray showed no acute fractures or subluxations and small joint effusion otherwise no significant abnormality. Patient right knee was splinted with Norman wrap and patient will discharge home on pain medications and advised to follow-up with her primary care physician in 7 to 10 days for reevaluation or return to the ED immediately if symptoms get worse. - Differential Diagnosis Knee fracture; knee sprain; knee contusion; osteoarthritis; knee effusion Critical care attestation.: If time is entered above; I have spent that time in minutes in the direct care of this critically ill patient, excluding procedure time. ED Disposition Clinical Impression: Effusion of knee joint right Sprain of right knee Qualifiers: Encounter type: initial encounter Involved ligament of knee: unspecified ligament Qualified Code(s): S83.91XA - Sprain of unspecified site of right knee, initial encounter Disposition: HOME / SELF CARE / HOMELESS Is pt being admited?: No Does the pt Need Aspirin: No Condition: Stable Instructions: Knee Effusion, [id number], Knee Sprain, Adult, [id number] Additional Instructions: The right knee x-ray showed no acute fractures or subluxations but a small joint effusion otherwise no significant abnormality. Therefore take medication with food, drink plenty of fluids and follow-up with your primary care physician in 7 to 10 days for reevaluation. Return to the ED immediately if symptoms get worse. Prescriptions: predniSONE [Deltasone] 60 mg PO QDAY #15 tab Naproxen 500 mg PO Q12H PRN #30 tab PRN Reason: Pain , Severe (7-10) traMADoL [Ultram] 50 mg PO Q6HR PRN #12 tablet PRN Reason: Pain Referrals: JESSIE ARCOS MD [Primary Care Provider] - 3-5 Days Forms: Work/School Release Form(ED) Time of Disposition: 14:21 Print Language: HUNGARIAN
[2021-10-05 15:14] VITALS: BP 136/89
== END 2021-10-05 15:13 | disposition home or self-care (01) ==
LOC: ED 10:11
DX: S83.8X1A Sprain of other specified parts of right knee, initial encounter (principal); M25.461 Effusion, right knee; I10 Essential (primary) hypertension; G89.29 Other chronic pain; F12.90 Cannabis use, unspecified, uncomplicated; Z88.5 Allergy status to narcotic agent; Z79.899 Other long term (current) drug therapy; X58.XXXA Exposure to other specified factors, initial encounter; Y93.89 Activity, other specified; Y92.89 Other specified places as the place of occurrence of the external cause; Y99.8 Other external cause status
CPT/HCPCS: 99283

== ENCOUNTER 2021-11-16 12:02 | Emergency (ER) | payer SELFPAY ==
[2021-11-16 14:57] VITALS: BP 172/92
== END 2021-11-16 16:00 | disposition left against medical advice (07) ==
LOC: ED 12:02
DX: M79.605 Pain in left leg (principal); Z53.21 Procedure and treatment not carried out due to patient leaving prior to being seen by health care provider